=== PATIENT | female | born 1985 | race Caucasian/White ===

== ENCOUNTER 2016-10-12 11:47 | Emergency (ER) | payer OTHER ==
[~2016-10-12] VITALS: Ht 160 cm; Wt 68.5 kg
[2016-10-12 11:51] VITALS: Ht 160 cm; Wt 68.5 kg
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
--- NOTE | 2016-10-12 13:19 | RADRPT ---
PROCEDURE: US OB. CLINICAL INDICATION: Vaginal bleeding TECHNIQUE: Transabdominal and endovaginal imaging of the gravid uterus is available for review COMPARISON: None available FINDINGS: There is a single intrauterine demonstrating a heart rate of 159 bpm. The crown-rump javier th equals 2.0 cm, giving an estimated gestational age of 8 weeks 1 day by ultrasound criteria. No s ubchorionic hemorrhage is identified. The right ovary is unremarkable. The left ovary was not visua lized. IMPRESSION: Single live intrauterine with an estimated gestational age of 8 weeks 1 day by ultrasound criteria and an estimated date of delivery of 05/23/2017. RPTAT: HH .Laury Ochoa MD, MD Date Time Electronically viewed and signed by .Laury Ochoa MD, on 10/12/2016 13:19 .G/
[2016-10-12] MEDS ORDERED: ACET500C5 PO (13:25)
== END 2016-10-12 13:39 | disposition home or self-care (01) ==
LOC: FTE 11:47
DX: Z04.1 Encounter for examination and observation following transport accident (principal)
CPT/HCPCS: 76801